=== PATIENT | male | born 1970 | race Caucasian/White ===

== ENCOUNTER 2020-10-03 03:13 | Inpatient (IN) | payer OTHER, SELFPAY ==
[~2020-10-03] VITALS: Ht 157.5 cm; Wt 75.3 kg
[2020-10-03 03:16] VITALS: Ht 157.5 cm; Wt 75.3 kg
[2020-10-03 05:38] LABS: BASOPHIL % 0.2 % (0.2-1.5); PLATELET COUNT 174 x10^3mcL (152-348); RED CELL DISTRIBUTION WIDTH 12.5 % (12.1-16.2)
[2020-10-03 05:40] LABS: rbc morphology (normal/abnorm) NORMAL (NORMAL)
[2020-10-03 05:45] LABS: CALCIUM 8.2 mg/dL (8.5-10.1); CARBON DIOXIDE 29.1 mmol/L (21-32); CHLORIDE SERUM 103 mmol/L (98-107); CREATININE SERUM 0.9 mg/dL (0.7-1.3); GFR1 > 60 mL/min; GLUCOSE SERUM 140 mg/dL (74-106); POTASSIUM SERUM 3.5 mmol/L (3.5-5.1); SODIUM SERUM 139 mmol/L (136-145)
[2020-10-03 05:58] LABS: ALBUMIN 3.4 g/dL (3.4-5.0); ALKALINE PHOSPHATASE 133 U/L (46-116); ALT/SGPT 172 U/L (16-63); AST/SGOT 191 U/L (15-37); BILIRUBIN TOTAL 0.65 mg/dL (0.20-1.00); LACTIC DEHYDROGENASE (LDH) 459 U/L (100-190); TOTAL PROTEIN, SERUM 7.1 g/dL (6.4-8.2)
[2020-10-03 06:00] LABS: C REACTIVE PROTEIN 15.2 mg/dL (<=0.9)
[2020-10-03 13:34] LABS: microscopic required? YES
[2020-10-03 13:38] LABS: urine erythrocyte 3+ (NEGATIVE)
[2020-10-03 15:28] VITALS: BP 125/68
[2020-10-04 07:35] LABS: BASOPHIL % 0.2 % (0.2-1.5); PLATELET COUNT 219 x10^3mcL (152-348); RED CELL DISTRIBUTION WIDTH 12.6 % (12.1-16.2)
[2020-10-04 08:37] LABS: GFR1 > 60 mL/min
[2020-10-04 08:49] LABS: PHOSPHOROUS 3.2 mg/dL (2.5-4.9)
[2020-10-04 10:05] LABS: ALBUMIN 3.1 g/dL (3.4-5.0); ALKALINE PHOSPHATASE 159 U/L (46-116); ALT/SGPT 174 U/L (16-63); AST/SGOT 153 U/L (15-37); BILIRUBIN TOTAL 0.52 mg/dL (0.20-1.00); CALCIUM 8.7 mg/dL (8.5-10.1); CARBON DIOXIDE 22.2 mmol/L (21-32); CHLORIDE SERUM 104 mmol/L (98-107); CREATININE SERUM 0.7 mg/dL (0.7-1.3); GLUCOSE SERUM 126 mg/dL (74-106); MAGNESIUM 2.4 mg/dL (1.8-2.4); SODIUM SERUM 140 mmol/L (136-145); TOTAL PROTEIN, SERUM 7.2 g/dL (6.4-8.2)
[2020-10-04 14:25] VITALS: BP 141/83
[2020-10-04 16:58] VITALS: BP 133/87
[2020-10-04 21:08] VITALS: BP 129/76
[2020-10-05 05:31] VITALS: BP 103/68
[2020-10-05 07:10] LABS: BASOPHIL % 0.2 % (0.2-1.5); PLATELET COUNT 246 x10^3mcL (152-348); RED CELL DISTRIBUTION WIDTH 12.6 % (12.1-16.2)
[2020-10-05 07:22] LABS: rbc morphology (normal/abnorm) NORMAL (NORMAL)
[2020-10-05 07:58] LABS: ALKALINE PHOSPHATASE 137 U/L (46-116); ALT/SGPT 132 U/L (16-63); AST/SGOT 93 U/L (15-37); BILIRUBIN TOTAL 0.7 mg/dL (0.20-1.00); CALCIUM 8.6 mg/dL (8.5-10.1); CARBON DIOXIDE 26.5 mmol/L (21-32); CHLORIDE SERUM 101 mmol/L (98-107); CREATININE SERUM 0.8 mg/dL (0.7-1.3); GFR1 > 60 mL/min; GLUCOSE SERUM 117 mg/dL (74-106); SODIUM SERUM 137 mmol/L (136-145)
[2020-10-05 09:27] VITALS: BP 140/90
[2020-10-05 17:09] VITALS: BP 147/84
[2020-10-05 21:09] VITALS: BP 137/85
[2020-10-06 05:48] VITALS: BP 138/87
[2020-10-06 09:04] LABS: BASOPHIL % 0.1 % (0.2-1.5); PLATELET COUNT 268 x10^3mcL (152-348); RED CELL DISTRIBUTION WIDTH 12.4 % (12.1-16.2)
[2020-10-06 10:00] VITALS: BP 122/80
[2020-10-06 10:14] LABS: ALKALINE PHOSPHATASE 130 U/L (46-116); AST/SGOT 48 U/L (15-37); BILIRUBIN TOTAL 0.96 mg/dL (0.20-1.00); CALCIUM 8.5 mg/dL (8.5-10.1); CARBON DIOXIDE 27.7 mmol/L (21-32); CHLORIDE SERUM 102 mmol/L (98-107); CREATININE SERUM 0.8 mg/dL (0.7-1.3); GFR1 > 60 mL/min; GLUCOSE SERUM 103 mg/dL (74-106); POTASSIUM SERUM 4.1 mmol/L (3.5-5.1); SODIUM SERUM 139 mmol/L (136-145)
[2020-10-06 10:24] LABS: ALBUMIN 2.9 g/dL (3.4-5.0)
[2020-10-06 10:38] LABS: ALT/SGPT 96 U/L (16-63)
[2020-10-06 10:41] LABS: BILIRUBIN DIRECT 0.29 mg/dL (0.0-0.2); BILIRUBIN TOTAL 0.96 mg/dL (0.20-1.00)
[2020-10-06 13:42] VITALS: BP 119/75
[2020-10-06 16:36] VITALS: BP 123/79
[2020-10-06 17:26] LABS: rbc morphology (normal/abnorm) NORMAL (NORMAL)
[2020-10-06 21:17] VITALS: BP 132/85
[2020-10-07 05:38] VITALS: BP 129/85
[2020-10-07 08:45] LABS: ALKALINE PHOSPHATASE 124 U/L (46-116); ALT/SGPT 81 U/L (16-63); AST/SGOT 32 U/L (15-37); CALCIUM 8.5 mg/dL (8.5-10.1); CARBON DIOXIDE 28.1 mmol/L (21-32); CHLORIDE SERUM 97 mmol/L (98-107); CREATININE SERUM 0.8 mg/dL (0.7-1.3); GFR1 > 60 mL/min; GLUCOSE SERUM 96 mg/dL (74-106); POTASSIUM SERUM 3.7 mmol/L (3.5-5.1); SODIUM SERUM 133 mmol/L (136-145); TOTAL PROTEIN, SERUM 6.8 g/dL (6.4-8.2)
[2020-10-07 08:46] LABS: BASOPHIL % 0.3 % (0.2-1.5); PLATELET COUNT 272 x10^3mcL (152-348); RED CELL DISTRIBUTION WIDTH 12.4 % (12.1-16.2)
[2020-10-07 08:47] LABS: ALBUMIN 2.9 g/dL (3.4-5.0)
[2020-10-07 09:17] LABS: BILIRUBIN DIRECT 0.25 mg/dL (0.0-0.2); BILIRUBIN TOTAL 0.9 mg/dL (0.20-1.00); TOTAL PROTEIN, SERUM 6.8 g/dL (6.4-8.2)
[2020-10-07 09:27] VITALS: BP 136/88
[2020-10-07 09:39] LABS: ALBUMIN 2.8 g/dL (3.4-5.0)
[2020-10-07 13:31] VITALS: BP 126/81
[2020-10-07 14:59] LABS: rbc morphology (normal/abnorm) NORMAL (NORMAL)
[2020-10-07 18:14] VITALS: BP 125/75
[2020-10-07 22:21] VITALS: BP 136/85
[2020-10-08 05:55] VITALS: BP 108/79
[2020-10-08 08:19] LABS: BASOPHIL % 0.1 % (0.2-1.5); PLATELET COUNT 317 x10^3mcL (152-348); RED CELL DISTRIBUTION WIDTH 12.3 % (12.1-16.2)
[2020-10-08 09:08] LABS: ALKALINE PHOSPHATASE 119 U/L (46-116); ALT/SGPT 65 U/L (16-63); AST/SGOT 20 U/L (15-37); CALCIUM 8.6 mg/dL (8.5-10.1); CARBON DIOXIDE 29.1 mmol/L (21-32); CHLORIDE SERUM 98 mmol/L (98-107); CREATININE SERUM 0.7 mg/dL (0.7-1.3); GFR1 > 60 mL/min; GLUCOSE SERUM 109 mg/dL (74-106); POTASSIUM SERUM 4.3 mmol/L (3.5-5.1); SODIUM SERUM 133 mmol/L (136-145); TOTAL PROTEIN, SERUM 6.8 g/dL (6.4-8.2)
[2020-10-08 09:10] LABS: ALBUMIN 2.9 g/dL (3.4-5.0)
[2020-10-08 10:05] VITALS: BP 118/86
[2020-10-08 12:49] LABS: rbc morphology (normal/abnorm) NORMAL (NORMAL)
[2020-10-08 13:36] VITALS: BP 125/84
[2020-10-08 19:01] VITALS: BP 121/80
[2020-10-08 22:41] VITALS: BP 129/75
[2020-10-09 05:21] VITALS: BP 117/79
[2020-10-09 08:56] VITALS: BP 115/81
[2020-10-09 10:00] LABS: ALKALINE PHOSPHATASE 109 U/L (46-116); ALT/SGPT 56 U/L (16-63); AST/SGOT 15 U/L (15-37); BILIRUBIN TOTAL 0.97 mg/dL (0.20-1.00); CALCIUM 8.5 mg/dL (8.5-10.1); CARBON DIOXIDE 25.8 mmol/L (21-32); CHLORIDE SERUM 97 mmol/L (98-107); CREATININE SERUM 0.7 mg/dL (0.7-1.3); GFR1 > 60 mL/min; GLUCOSE SERUM 105 mg/dL (74-106); SODIUM SERUM 131 mmol/L (136-145); TOTAL PROTEIN, SERUM 6.8 g/dL (6.4-8.2)
[2020-10-09 10:07] LABS: ALBUMIN 2.9 g/dL (3.4-5.0)
[2020-10-09 10:32] LABS: BASOPHIL % 0.2 % (0.2-1.5); PLATELET COUNT 356 x10^3mcL (152-348); RED CELL DISTRIBUTION WIDTH 12.4 % (12.1-16.2)
[2020-10-09 10:56] LABS: rbc morphology (normal/abnorm) NORMAL (NORMAL)
[2020-10-09 12:39] VITALS: BP 122/81
[2020-10-09 16:56] VITALS: BP 115/81
[2020-10-09 22:27] VITALS: BP 126/76
[2020-10-10 06:07] VITALS: BP 114/75
[2020-10-10 09:01] LABS: ALKALINE PHOSPHATASE 99 U/L (46-116); ALT/SGPT 45 U/L (16-63); AST/SGOT 12 U/L (15-37); BILIRUBIN TOTAL 1.34 mg/dL (0.20-1.00); C REACTIVE PROTEIN 0.4 mg/dL (<=0.9); CARBON DIOXIDE 27.6 mmol/L (21-32); CHLORIDE SERUM 96 mmol/L (98-107); CREATININE SERUM 0.7 mg/dL (0.7-1.3); GFR1 > 60 mL/min; GLUCOSE SERUM 100 mg/dL (74-106); POTASSIUM SERUM 3.7 mmol/L (3.5-5.1); SODIUM SERUM 131 mmol/L (136-145); TOTAL PROTEIN, SERUM 6.3 g/dL (6.4-8.2)
[2020-10-10 09:04] LABS: ALBUMIN 2.8 g/dL (3.4-5.0)
[2020-10-10 09:14] VITALS: BP 115/80
[2020-10-10 10:56] LABS: BASOPHIL % 0.2 % (0.2-1.5); PLATELET COUNT 394 x10^3mcL (152-348); RED CELL DISTRIBUTION WIDTH 12.1 % (12.1-16.2)
[2020-10-10 12:22] VITALS: BP 116/80
[2020-10-10 17:27] VITALS: BP 114/72
[2020-10-10 19:50] VITALS: BP 133/77
[2020-10-11 04:35] VITALS: BP 111/71
[2020-10-11 07:40] LABS: BASOPHIL % 0.2 % (0.2-1.5); PLATELET COUNT 393 x10^3mcL (152-348); RED CELL DISTRIBUTION WIDTH 12.3 % (12.1-16.2)
[2020-10-11 08:32] LABS: ALKALINE PHOSPHATASE 94 U/L (46-116); ALT/SGPT 40 U/L (16-63); AST/SGOT 16 U/L (15-37); BILIRUBIN TOTAL 1.4 mg/dL (0.20-1.00); CALCIUM 8.2 mg/dL (8.5-10.1); CARBON DIOXIDE 30.2 mmol/L (21-32); CHLORIDE SERUM 98 mmol/L (98-107); CREATININE SERUM 0.7 mg/dL (0.7-1.3); GFR1 > 60 mL/min; GLUCOSE SERUM 93 mg/dL (74-106); POTASSIUM SERUM 3.7 mmol/L (3.5-5.1); SODIUM SERUM 134 mmol/L (136-145)
[2020-10-11 08:35] LABS: ALBUMIN 2.7 g/dL (3.4-5.0); TOTAL PROTEIN, SERUM 5.9 g/dL (6.4-8.2)
[2020-10-11 08:59] VITALS: BP 114/74
[2020-10-11 12:27] VITALS: BP 113/67
[2020-10-11 16:45] VITALS: BP 109/68
[2020-10-11 22:00] VITALS: BP 111/66
[2020-10-12 05:27] VITALS: BP 102/64
[2020-10-12 07:51] LABS: BASOPHIL % 0.1 % (0.2-1.5); RED CELL DISTRIBUTION WIDTH 12.1 % (12.1-16.2)
[2020-10-12 08:37] LABS: PLATELET COUNT 426 x10^3mcL (152-348)
[2020-10-12 08:39] VITALS: BP 102/73
[2020-10-12 09:59] LABS: ALKALINE PHOSPHATASE 92 U/L (46-116); ALT/SGPT 41 U/L (16-63); AST/SGOT 13 U/L (15-37); BILIRUBIN TOTAL 1.1 mg/dL (0.20-1.00); CALCIUM 8.1 mg/dL (8.5-10.1); CHLORIDE SERUM 100 mmol/L (98-107); CREATININE SERUM 0.7 mg/dL (0.7-1.3); GFR1 > 60 mL/min; POTASSIUM SERUM 3.6 mmol/L (3.5-5.1); SODIUM SERUM 135 mmol/L (136-145)
[2020-10-12 10:16] LABS: ALBUMIN 2.7 g/dL (3.4-5.0); TOTAL PROTEIN, SERUM 5.9 g/dL (6.4-8.2)
[2020-10-12] MEDS ORDERED: DECADRON6 MG PO (11:31)
[2020-10-12] MEDS ORDERED: MORGIDOX 1X100100 MG PO (11:32)
[2020-10-12] MEDS ORDERED: VENTOLIN H0.09 MG/A1 INH (11:32)
[2020-10-12] MEDS ORDERED: ZINC SULFATE220 MG PO (11:33)
[2020-10-12] MEDS ORDERED: ROBDML PO (11:35)
[2020-10-12] MEDS ORDERED: VITC PO (11:36)
[2020-10-12] MEDS ORDERED: MUCINEX600 MG PO (11:36)
[2020-10-12] MEDS ORDERED: D-10001 TAB PO (11:37)
[2020-10-12 11:54] VITALS: BP 103/57
[2020-10-12 12:38] LABS: GLUCOSE SERUM 95 mg/dL (74-106)
[2020-10-12 13:01] VITALS: BP 103/57
== END 2020-10-12 15:25 | disposition home or self-care (01) | DRG 871 ==
LOC: ED 03:13 → DU 06:08
PROVIDERS: Internal Medicine; Specialist; ADMIT Family Medicine; ATTEND Family Medicine
PROC: XW13325 Transfusion of Convalescent Plasma (Nonautologous) into Peripheral Vein, Percutaneous Approach, New Technology Group 5 (ICD-10-PCS; principal; 2020-10-05)
PROC: XW033E5 Introduction of Remdesivir Anti-infective into Peripheral Vein, Percutaneous Approach, New Technology Group 5 (ICD-10-PCS; 2020-10-05)
PROC: 02HV33Z Insertion of Infusion Device into Superior Vena Cava, Percutaneous Approach (ICD-10-PCS; 2020-10-06)
DX: A41.9 Sepsis, unspecified organism (principal); U07.1 COVID-19; J18.9 Pneumonia, unspecified organism; J96.01 Acute respiratory failure with hypoxia; Z79.899 Other long term (current) drug therapy; Z79.891 Long term (current) use of opiate analgesic; Z79.01 Long term (current) use of anticoagulants
CPT/HCPCS: 83880; 85378; 87804; G0378; J1100; J1650; J3535; J7050; U0003